=== PATIENT | female | born 1980 | race Caucasian/White ===

== ENCOUNTER 2017-07-25 13:46 | Outpatient (CLI) | payer OTHER ==
[~2017-07-25] VITALS: Ht 170.2 cm; Wt 130.0 kg
[2017-07-25 13:56] VITALS: BP 132/86; PULSE 107; RESP 16; Ht 170.2 cm; Wt 130.0 kg
[2017-07-25] MEDS ORDERED: MAGN200T PO (14:16)
[2017-07-25] MEDS ORDERED: CYAN100018 PO (14:16)
[2017-07-25] MEDS ORDERED: CHOL200073 PO (14:16)
[2017-07-25] MEDS ORDERED: CETI10TA34 PO (14:16)
--- NOTE | 2017-07-25 15:15 | CONS ---
Date/Time of Note Date/Time of Note DATE: 07/25/17 TIME: 15:14 Assessment/Plan Assessment/Plan Additional Assessment/Plan [facility] INITIAL OUTPATIENT CONSULTATION NOTE DATE OF CONSULTATION: 07/25/2017 PLACE OF SERVICE: [facility] ASSESSMENT AND PLAN: A very-pleasant 37-year-old lady with a few comorbidities including BMI 44.9 and possible hepatic steatosis without obvious evidence of steatohepatitis, presenting with clinical picture and images that are consistent with a simple hepatic cyst in segment 2 of the liver. Appearance of this cyst appears stable over the course of a number of months in 2017 and I do not believe that there is any indication for intervention or further imaging for this specific issue. Of much more important since the patient's BMI of almost 45 which is significant danger to her life and in my opinion, has a high chance of limiting her life if not addressed at this stage. I did not get a sense that the patient was adequately informed about the risks of BMI to her life and spend quite a bit of time in the office describing the natural history and pathophysiology of this disease and recommended strongly that we pursue aggressive medical management of her obesity within the confines of a bariatrics program. There may be a hormonal aspects to the weight issue and this should be worked up further with experienced data conversion analyst. Patient certainly can also benefit from surgical evaluation of bypass or other interventions. Finally program that she gets enrolled in should also have counselors, dietitians, and other resources to help her decrease her BMI to a safe range. I answered all the patient's questions to the best my ability and I believe that the patient understood the above points and agreed with the plans. With above assessment, I've recommended the followin. No further imaging or testing required for the hepatic cyst in segment 2 of the liver 2. Close follow-up with Dr. Davidson regarding her hepatic steatosis and any further testing that may be required (? Liver biopsy versus further ultrasound elastography) 3. Strongly recommend enrollment in a comprehensive bariatrics program as outlined above 4. If the occasional right upper quadrant discomfort continues or worsens, the patient may benefit from further studies of the gallbladder (possibly with a HIDA scan); I would be happy to remain involved to remove the gallbladder if needed 5. Follow-up with primary care physician 6. Follow-up with us as needed Thank you very much for having me involved in the care of this very pleasant patient and wonderful family. If you have any questions, please feel free to contact me at [phone]. Nature of presenting problem: Low severity for the hepatic cyst but high severity for the elevated BMI of 45 Please note that, given the extensive number of diagnoses or management options , the extensive amount and/or complexity of data needed to be reviewed, and I risk of complications and/or morbidity or mortality, this qualifies as high complexity type of decision-making (low complexity for the hepatic cysts but high complexity for elevated BMI of 45). Disclaimers: 1. Inadvertent spelling and grammatical errors are likely due to electronic health record (EHR)/dictation software used and do not reflect on the quality of delivered patient care. 2. The electronic timestamp recorded on this note does not necessarily reflect the actual date and time of the visit or the service. 3. Portions of this note may have been created through electronic templates and computer algorithms that might bring in information either from the system or from other physicians and providers. Please note that such information may or may not contain errors, the occurrence of which are outside of my control. In general (but not always) this happens either in the beginning or at the end of the note. The portion of the note that I have created are generally done in 1 continuous block of text, flanked at the beginning and at the end by " ", and entered into one field in the EHR. 4. There may be other unanticipated errors in the note that are outside of my control. I can only attest to the portions of the note that I have created. Updated clinical summary: A very-pleasant 37-year-old lady with a few comorbidities including BMI 44.9 and possible hepatic steatosis without obvious evidence of steatohepatitis, presenting with clinical picture and images that are consistent with a simple hepatic cyst in segment 2 of the liver. Comorbidities: 1. BMI 44.9 2. Hypertension 3. SVT 4. Prediabetic 5. Possible lung disease (per patient's own report) 6. Hyperlipidemia 7. Polycystic ovarian syndrome 8. Depression 9. Vitamin D deficiency 10. Anemia 11. NIKITA positive (homogeneous pattern. Lupus panel was within normal limits except a mildly abnormal C3 C) 12. HDL deficiency 13. Hepatic steatosis with reported diagnosis 2007. Saw an herbalist at that time and she stated that she improved. Diagnosis repeated July 2015 where ultrasound showed fatty liver disease. Repeat ultrasound November 2015 confirmed. Risk factors of NAFLD of the include hyperlipidemia and elevated BMI of near 45. Also occasional alcohol intake. AMA negative, ASMA negative, anti-HCV negative, hepatitis B surface antigen negative. Liver function and injury parameters normal and platelet count normal. 14. Hepatic lesion left lobe of liver: 2 prior ultrasounds indicated a lesion in the liver. 2 MRI scans of the liver in 2016 show a simple cyst in segment 2 of liver. Note that this is based on my own interpretation of the images. The report from November MRI does not mention lesions in the left lobe and characterize the lesion as a 7.5 mm simple cyst arising in the medial aspect of the right lobe of liver. There is no mention of a cyst in the MRI from March 2017. Examination of the images clearly show a cyst in the segment 2 of liver on the left side. 15. Ear surgery, 1993, reconstruction of the eardrum 16. Removal of adenoids/tube left ear 2006 17. Heart ablation, August 2009 18. Surgery to explore middle/inner ear October 2009 CONSULTATION REQUESTED BY: Nena Davidson MD Dear Dr. Davidson, Thank you very much for the opportunity to participate in the care of this very pleasant lady and I am certain her wonderful family. HISTORY OF PRESENT ILLNESS: The patient is a very pleasant 37-year-old lady with a few comorbidities including BMI 44.9 and possible hepatic steatosis without obvious evidence of steatohepatitis, whom we were kindly asked to consult regarding management of her liver lesion which has been described with somewhat inconsistent descriptions ranging from solid lesion on ultrasounds to simple cysts on MRIs (see above). Patient herself has been asymptomatic. She has occasional discomfort in the right upper quadrant and this does have some relationship to different foods that she takes in. She does report significant weight gain over the last few years and partially attributes it to her lower extremity difficulties and ensuing inactivity from there. She insists that she does not eat much and that she does not have an eating problem. She reports her main issue to be inability to lose weight. She has tried various diets unsuccessfully. No other major complaints during my visit. ALLERGIES: Azithromycin, codeine, shellfish derived foods, pseudoephedrine, Sudafed, Z-Aung MEDICATIONS Documented in the electronic records and reviewed by me. Please see the electronic records for details. SOCIAL HISTORY: The patient does not have any children. 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 Stroke history in her mother. High blood pressure in her mother's siblings including her brother. There are no other significant medical, surgical or oncologic issues in the family as reported by the patient or reflected in the chart. REVIEW OF SYSTEMS: Other than mentioned above, there were no other pertinent positives or pertinent negatives in an otherwise complete 14 point review of systems. PHYSICAL EXAMINATION GENERAL: The patient appears to be a very pleasant of descent sitting in a chair, appearing stated age,] and otherwise in no acute distress. BMI: 44.9 VITAL SIGNS: AVSS (please also see auto important data if available as well as the electronic records) HEENT: Normocephalic and atraumatic. Extraocular muscles and hearing are grossly intact bilaterally and symmetrically. Sclerae are nonicteric. Oral cavity is clear; oral mucosa appear to be pink and moist. Dentition: fair. NECK: Supple. There is no lymphadenopathy or JVD. There is no submental, submandibular or supraclavicular lymphadenopathy. CHEST: Rises symmetrically with each breath; patient is breathing comfortably. There are no audible wheezes, rales or rhonchi on the gross exam. HEART: Pulse is regular and palpable on the right wrist. Capillary refill is normal. Carotid pulses are palpable bilaterally and symmetrically in the neck. EXTREMITIES: Lower extremities contain no pitting edema around the ankles bilaterally and symmetrically. ABDOMEN: Abdomen is soft, nontender and nondistended. No evidence of ascites, organomegaly, caput medusae, engorged subcutaneous veins, or other abnormalities. There are no peritoneal signs or guarding. SKIN: Appears to be pink and feels warm to touch. NEUROLOGIC: Awake, alert, and follows commands appropriately. LABORATORY DATA: See above IMAGING: See electronic chart. Please note that I've personally reviewed all pertinent available images and I agree in general with their overall reported findings. Consultation Date/Type/Reason Admit Date/Time Exam/Review of Systems Vital Signs Vitals Vital Signs Date Time Temp Pulse Resp B/P Pulse Ox O2 Delivery O2 Flow Rate FiO2 07/25/17 13:56 98.2 107 16 132/86 97 Room Air BRI CHRISTIAN M.D. Jul 25, 2017 15:15
== END 2017-07-25 17:00 | disposition home or self-care (01) ==
LOC: HPC 13:46
PROVIDERS: ATTEND Transplant Surgery
DX: K76.89 Other specified diseases of liver (principal); I10 Essential (primary) hypertension; E78.5 Hyperlipidemia, unspecified; F32.9 Major depressive disorder, single episode, unspecified; E55.9 Vitamin D deficiency, unspecified; I47.1 Supraventricular tachycardia; D64.9 Anemia, unspecified; R73.03 Prediabetes; K76.0 Fatty (change of) liver, not elsewhere classified
CPT/HCPCS: G0463